=== PATIENT | female | born 1975 | race Caucasian/White ===

== ENCOUNTER → 2019-04-22 | Outpatient (CLI) | payer OTHER ==
--- NOTE | 2019-04-22 16:03 | RAD ---
EXAM DESCRIPTION: Knee,Right Complete CLINICAL HISTORY: 44 years Female, PAIN IN RIGHT KNEE COMPARISON: None. Findings: Four views/radiographs Location: Right knee No acute fracture or dislocation. Mild medial compartment narrowing. No significant joint effusion. No focal soft tissue swelling. Normal bone mineralization. IMPRESSION: No evidence of acute process in the right knee. Electronically signed by: Sal Bolton MD 04/22/2019 4:01 PM [facility]
--- NOTE | 2019-04-22 16:15 | RAD ---
EXAM DESCRIPTION: Pelvis CLINICAL HISTORY: PAIN IN RIGHT HIP COMPARISON: None. IMPRESSION: Single AP supine view of the pelvis shows no acute fracture, focal bone destruction, or joint dislocation. Electronically signed by: Angel Moreno MD 04/22/2019 4:13 PM [facility] [place]
== END ==
LOC: RAD 10:14
PROVIDERS: ATTEND Orthopaedic Surgery
DX: M25.561 Pain in right knee (principal); M25.551 Pain in right hip